=== PATIENT | male | born 1965 | race Caucasian/White ===

== ENCOUNTER 2018-05-23 12:30 | Emergency (ER) | payer MEDICAID ==
[~2018-05-23] VITALS: Ht 165.1 cm; Wt 61.7 kg
[2018-05-23 12:30] VITALS: BP_SYST 121
[2018-05-23 15:14] VITALS: BP_SYST 117
== END 2018-05-23 15:14 | disposition home or self-care (01) ==
LOC: SED 12:30
DX: L50.8 Other urticaria (principal); Z88.6 Allergy status to analgesic agent
CPT/HCPCS: 99283

== ENCOUNTER 2019-03-22 05:18 | Emergency (ER) | payer MEDICAID ==
[~2019-03-22] VITALS: Ht 165.1 cm; Wt 61.7 kg
[2019-03-22 05:18] VITALS: BP_SYST 126
[2019-03-22] MEDS ORDERED: NACL 0.9% 1,000 ML IV ONE (05:45)
[2019-03-22] MEDS ORDERED: PANTOPRAZOLE SODIUM 40 MG/VIAL (PROTONIX) IVP ONE (05:45)
[2019-03-22] MEDS ORDERED: LevALBUTEROL HCL 1.25 MG/0.5 ML *CONC.* VIAL.NEB (XOPENEX CONC.) INH ONE ×2 (06:00→07:30)
[2019-03-22 06:31] LABS: BASOPHILS # (AUTO) 0.1 K/uL (0.0-0.2); BASOPHILS % (AUTO) 0.7 % (0.0-2.0); EOSINOPHILS # (AUTO) 0.1 K/uL (0.0-0.4); HEMATOCRIT 42.6 % (36-54); HEMOGLOBIN 14.6 g/dL (14.0-18.0); LYMPHOCYTES # (AUTO) 1.3 K/uL (1.0-5.5); LYMPHOCYTES % (AUTO) 13.6 % (20.5-51.5); MEAN CORPUSCULAR HEMOGLOBIN 33 pg (27-31); MEAN CORPUSCULAR HGB CONC 34 % (32-36); MEAN CORPUSCULAR VOLUME 97 fL (79.0-98.0); MONOCYTES # (AUTO) 0.5 K/uL (0.0-1.0); MONOCYTES % (AUTO) 4.9 % (1.7-9.3); NEUTROPHILS # (AUTO) 7.9 K/uL (1.8-7.7); NEUTROPHILS % (AUTO) 79.8 % (40.0-70.0); PLATELET COUNT (AUTO) 223 K/uL (130-430); RED BLOOD CELL COUNT(AUTO) 4.41 MIL/uL (4.2-6.2); RED CELL DISTRIBUTION WIDTH 12.4 % (9.0-15.0); WHITE BLOOD COUNT (AUTO) 9.9 K/uL (4.8-10.8)
[2019-03-22 06:50] LABS: ALBUMIN 3.9 g/dL (3.4-4.8); CALCIUM 8.9 mg/dL (8.4-11.0); CREATININE 0.8 mg/dL (0.55-1.30); POTASSIUM 3.7 mmol/L (3.5-5.1); TOTAL BILIRUBIN 0.3 mg/dL (0.0-1.0)
[2019-03-22 07:13] LABS: BARBITURATE, URINE NEGATIVE (NEG <=200); BENZODIAZEPINE, URINE NEGATIVE (NEG <=150); CANNABINOID, URINE POSITIVE (NEG <=50); COCAINE, URINE NEGATIVE (NEG <=150); METHAMPHETAMINES SCREEN,URINE NEGATIVE (NEG <=500); OPIATE, URINE NEGATIVE (NEG <=100); PHENCYCLIDINE SCREEN,URINE NEGATIVE (NEG <=25); UR TRICYCLIC ANTIDEPRESSANTS NEGATIVE (NEG <=300); URINE AMPHETAMINE NEGATIVE (NEG <=500); URINE METHADONE NEGATIVE (NEG <=200); URINE OXYCODONE SCREEN NEGATIVE (NEG <=100); URINE PROPOXYPHENE SCREEN NEGATIVE (NEG <=300)
[2019-03-22 07:21] LABS: BILIRUBIN,URINE NEGATIVE (NEGATIVE); BLOOD, URINE NEGATIVE (NEGATIVE); CLARITY/URINE CLEAR (CLEAR); COLOR,URINE YELLOW (YELLOW); GLUCOSE,URINE NEGATIVE (NEGATIVE); KETONES,URINE NEGATIVE (NEGATIVE); LEUKOCYTE ESTERASE ,URINE NEGATIVE (NEGATIVE); NITRITE, URINE NEGATIVE (NEGATIVE); PH,URINE 5.5 (5.0-8.0); PROTEIN URINE NEGATIVE (NEGATIVE); UROBILINOGEN,URINE 0.2 (0.2-1.0)
[2019-03-22] MEDS ORDERED: AMOXICILLIN 500 MG CAPSULE PO ONE (07:30)
[2019-03-22 07:54] VITALS: BP_SYST 115
== END 2019-03-22 07:55 | disposition home or self-care (01) ==
LOC: SED 05:18
DX: R06.02 Shortness of breath (principal); J98.01 Acute bronchospasm; J40 Bronchitis, not specified as acute or chronic; F17.290 Nicotine dependence, other tobacco product, uncomplicated; F12.90 Cannabis use, unspecified, uncomplicated
CPT/HCPCS: 36415; 71045; 80053; 80307; 81003; 83690; 83880; 84484; 85025; 85379; 85610; 85730; 93005; 94640; 96374; 99284; C9113; J7030; J7612

== ENCOUNTER 2019-05-12 10:44 | Emergency (ER) | payer MEDICAID ==
[~2019-05-12] VITALS: Ht 165.1 cm; Wt 62.6 kg
[2019-05-12 10:59] VITALS: BP_SYST 123
[2019-05-12] MEDS ORDERED: ACETAMINOPHEN 500 MG TABLET PO ONE (11:45)
[2019-05-12 12:27] LABS: FREE T4 (FREE THYROXINE) 0.9 ng/dl (0.8-1.5); THYROID STIMULATING HORMONE 0.19 uIu/mL (0.36-3.74)
[2019-05-12 12:57] VITALS: BP_SYST 136
== END 2019-05-12 12:57 | disposition home or self-care (01) ==
LOC: SED 10:44
DX: I88.9 Nonspecific lymphadenitis, unspecified (principal); Z88.6 Allergy status to analgesic agent
CPT/HCPCS: 36415; 76536-TC; 84439; 84443-TC; 99284

== ENCOUNTER 2021-08-10 12:32 | Emergency (ER) | payer MEDICAID, OTHER ==
[~2021-08-10] VITALS: Ht 157.5 cm; Wt 63.5 kg
[2021-08-10 12:32] VITALS: BP_SYST 12
--- NOTE | 2021-08-10 14:21 | NUR ---
ER Dr. Avila to triage area to examine patient.
--- NOTE | 2021-08-10 14:27 | NUR ---
Pt here from home reporting work injury from yesterday. Stated was pulling hoses backwards and sustained fall, hurting R eye and L LE. Pain reported 8/10 when sitting. Slight blurry vision in R eye and headache also reported. Imaging done to r/o fractures. Dr Avila to dispo.
[2021-08-10] MEDS ORDERED: TRAM50TA2 PO (14:28)
[2021-08-10] MEDS ORDERED: POLYTRIM EACH EYE (14:28)
--- NOTE | 2021-08-10 14:55 | NUR ---
Patient given written and verbal discharge instructions and verbalizes understanding. ER MD discussed with patient the results and treatment provided. Patient in stable condition. ID arm band removed. Rx of Polymyxin and Tramadol given. Patient educated on pain management and to follow up with PMD. Opportunity for questions provided and answered. Medication side effect fact sheet provided.
== END 2021-08-10 14:55 | disposition home or self-care (01) ==
LOC: SED 12:32
DX: S62.021A Displaced fracture of middle third of navicular [scaphoid] bone of right wrist, initial encounter for closed fracture (principal); S05.02XA Injury of conjunctiva and corneal abrasion without foreign body, left eye, initial encounter; Z88.6 Allergy status to analgesic agent; W01.0XXA Fall on same level from slipping, tripping and stumbling without subsequent striking against object, initial encounter; Y93.89 Activity, other specified; Y92.89 Other specified places as the place of occurrence of the external cause; Y99.8 Other external cause status
CPT/HCPCS: 73502; 99284